=== PATIENT | male | born 1945 | race Caucasian/White ===

== ENCOUNTER → 2018-08-29 | Outpatient (CLI) | payer MEDICARE, OTHER ==
[2018-08-29 10:47] LABS: ABG BASE EXCESS -0.9 MMOL/L (-2.5-2.5); ABG OXYGEN SATURATION 98 % (94-100); ABG PCO2 33 MMHG (35-45); ABG PH 7.45 (7.37-7.43); ABG PO2 84 MMHG (79-93); ABG TCO2 23.8 MMOL/L (21.0-31.0)
[2018-08-29 10:48] LABS: ALLENS TEST YES-POS; INSPIRED O2 RA; PATIENT TEMP 97.1; VENTILATOR NO
--- NOTE | 2018-08-29 13:18 | NUR ---
PATIENT WAS ON RA WHEN HE CAME FOR HIS O2 WALK, RT CHECKED PATIENTS O2 SAT AND IT WAS AT 96%; HE THEN WALKED FOR 6 MINS WITHOUT STOPPING AND DID NOT DESAT BELOW 94% ON EXERTION. PATIENT IS NOT REQUIRING ANY O2 AT REST OR ON EXERTION ATT
== END ==
LOC: RT 10:01
PROVIDERS: ATTEND Nurse Practitioner Family
DX: R06.00 Dyspnea, unspecified (principal); J30.9 Allergic rhinitis, unspecified; R06.89 Other abnormalities of breathing; G47.33 Obstructive sleep apnea (adult) (pediatric)
CPT/HCPCS: 36600; 82805; 94761